=== PATIENT | male | born 1955 | race Caucasian/White ===

== ENCOUNTER 2023-01-16 08:46 | Emergency (ER) | payer BC, OTHER ==
[~2023-01-16] VITALS: Ht 172.7 cm; Wt 79.4 kg
--- NOTE | 2023-01-16 08:48 | NUR ---
Patient to ER bed 04 to gown for evaluation. Side rails up.
[2023-01-16 08:51] VITALS: BP_SYST 146; PULSE 72; RESP 18; TEMP 98.3; O2SAT 97
--- NOTE | 2023-01-16 08:58 | NUR ---
PT BIB AWAKE AND ALERT AOX4, NO SOB OR DISTRESS. PT C/O LACERATION TO R FOREHEAD WHILE AT WORK [employer] AT 0800. PT HAS 6 CM LACERATION W/ NO ACTIVE BLEEDING. PT DENIES HX AND SX.
--- NOTE | 2023-01-16 09:00 | NUR ---
MD DR PATRICIO AT BEDSIDE
[2023-01-16] MEDS ORDERED: DIPHTH,PERTUSS(ACELL),TET VAC 0.5 ML VIAL (Tdap) I.M. ONE (09:15)
--- NOTE | 2023-01-16 09:31 | NUR ---
Patient given written and verbal discharge instructions and verbalizes understanding. ER MD DR PATRICIO discussed with patient the results and treatment provided. Patient in stable condition. ID arm band removed. Patient educated on pain management and to follow up with PMD. Pain Scale 0/10. Opportunity for questions provided and answered. Medication side effect fact sheet provided.
== END 2023-01-16 09:31 | disposition home or self-care (01) ==
LOC: SED 08:46
DX: S01.01XA Laceration without foreign body of scalp, initial encounter (principal); Z79.899 Other long term (current) drug therapy; W22.8XXA Striking against or struck by other objects, initial encounter; Y93.89 Activity, other specified; Y92.89 Other specified places as the place of occurrence of the external cause; Y99.8 Other external cause status
CPT/HCPCS: 90715; 99283

== ENCOUNTER 2023-01-24 06:54 | Emergency (ER) | payer OTHER ==
[~2023-01-24] VITALS: Ht 175.3 cm; Wt 78.9 kg
[2023-01-24 06:55] VITALS: BP_SYST 121; PULSE 72; RESP 18; TEMP 98.3; O2SAT 96
[2023-01-24 07:32] VITALS: BP_SYST 121; PULSE 72; RESP 18; TEMP 98.3; O2SAT 96
== END 2023-01-24 07:30 | disposition home or self-care (01) ==
LOC: SED 06:54
DX: Z48.02 Encounter for removal of sutures (principal)
CPT/HCPCS: 99281